=== PATIENT | male | born 1955 | race Caucasian/White ===

== ENCOUNTER 2019-03-27 08:49 | Day surgery (SDC) | payer OTHER ==
[2019-03-27] MEDS: NEPAFENAC 0.1% 3 ML OPH OPER (09:22)
[2019-03-27] MEDS: PHENYLephrine 10% 5 ML OPH OPER (09:23)
[2019-03-27] MEDS: CYCLOPENTOLATE 2% 2 ML OPH OPER (09:23)
[2019-03-27] MEDS: SOD CHLORIDE 0.9% 1,000 ML IV (09:24)
[2019-03-27] MEDS: MOXIFLOXACIN 0.5% 3 ML OPH OPER (09:25)
[2019-03-27] MEDS ORDERED: MEPERIDINE 25 MG INJ IV (10:00)
[2019-03-27] MEDS ORDERED: PROCHLORPERAZINE 10 MG INJ IV (10:00)
[2019-03-27] MEDS ORDERED: FENTAnyl 50 MCG/ML VIAL IV (10:00)
[2019-03-27] MEDS ORDERED: OXYCODONE/ACETAMINOPHEN (5/325) TAB PO (10:00)
[2019-03-27] MEDS ORDERED: ONDANSETRON 4 MG INJ IV (10:00)
[2019-03-27] MEDS ORDERED: HYDROmorphONE 1 MG/5 ML IV SYRINGE IV (10:00)
[2019-03-27] MEDS ORDERED: SEVOFLURANE 15 MIN (10:08)
[2019-03-27] MEDS ORDERED: EPHEDrine 25 MG/5 ML SYG (10:08)
[2019-03-27] MEDS ORDERED: FENTAnyl 50 MCG/ML VIAL (10:08)
[2019-03-27] MEDS ORDERED: ONDANSETRON 4 MG INJ (10:22)
[2019-03-27] MEDS: TIMOLOL 0.5% 5 ML OPH RIGHT EYE (10:29)
[2019-03-27] MEDS ORDERED: CARBACHOL 0.01% 1.5 ML OPH INJ (10:41)
[2019-03-27] MEDS ORDERED: TIMOLOL 0.5% 5 ML OPH (11:03)
[2019-03-27] MEDS ORDERED: PROPOFOL 20 ML (13:30)
[2019-03-27] MEDS ORDERED: LIDOCAINE 2% (SDV) 5 ML INJ (13:30)
== END 2019-03-27 13:01 | disposition home or self-care (01) ==
LOC: SUR 08:49
DX: H25.11 Age-related nuclear cataract, right eye (principal); I10 Essential (primary) hypertension; E11.9 Type 2 diabetes mellitus without complications; Z86.73 Personal history of transient ischemic attack (TIA), and cerebral infarction without residual deficits; Z79.82 Long term (current) use of aspirin; Z79.84 Long term (current) use of oral hypoglycemic drugs
CPT/HCPCS: 66984; 82962